=== PATIENT | female | born 1955 | race Hispanic/Latino ===

== ENCOUNTER 2016-05-30 16:03 | Outpatient (CLI) | payer BC ==
--- NOTE | 2016-05-30 17:20 | XRay Report ---
LEFT HIP, 2 views: History: Left hip pain. The bony architecture is intact without evidence of fracture or dislocation. No significant soft tissue abnormality is seen. IMPRESSION: Normal left hip.
--- NOTE | 2016-05-31 12:02 | XRay Report ---
LUMBOSACRAL SPINE, FIVE VIEWS HISTORY: Low back pain. FINDINGS: Osteopenia is suspected. There is no evidence for compression fracture, malalignment or bone lesion. There is mild straightening of the normal lordosis. Mild multilevel degenerative disc disease is identified although no advanced disc space narrowing is present. There is however moderate to severe multilevel facet arthropathy. Hypertrophic changes are identified. The facet joints at L2-3 and L5-S1 on the left side are particularly involved. The oblique images demonstrate no convincing neural foraminal stenosis or pars defects. IMPRESSION: Osteopenia. Degenerative changes as outlined above. No evidence for fracture or malalignment.
== END 2016-05-30 16:04 | disposition home or self-care (01) ==
LOC: XRAY 16:03
PROVIDERS: ATTEND Psychiatry & Neurology Neurology
DX: M47.897 Other spondylosis, lumbosacral region (principal); M25.552 Pain in left hip
CPT/HCPCS: 72110